=== PATIENT | male | born 1965 | race Caucasian/White ===

== ENCOUNTER 2017-11-26 18:01 | Emergency (ER) | payer BC ==
[~2017-11-26] VITALS: Ht 172.7 cm; Wt 74.8 kg
--- OUTSIDE RECORDS SUMMARY | ~2017-11-26 | XMS | Clinical Summary ---
Demographics + + + | Address | [address] | | | [place] [address] | + + + | Home Phone | | + + + | Preferred Language | Unknown | + + + | Marital Status | | + + + | Voodoo Affiliation | Unknown | + + + | Race | White | + + + | Ethnic Group | Not or | + + + Author + + + | Organization | Unknown | + + + | Address | Unknown | + + + | Phone | Unavailable | + + + Support + + + + + | Name | Relationship | Address | Phone | + + + + + | ITZEL MCKINNEY | [address] | [place] | | + + + + + Care Team Providers + +------+ + | Care Wafer Fabrication Operator Name | Role | Phone | + +------+ + PP | Unavailable | + +------+ + Source Comments VISHNU is fully live on both [facility] and [facility] Allergies Not on File Current Medications Not on file Active Problems Not on file Social History + +-------+ +--------+------+ | Tobacco Use | Types | Packs/Day | Years | Date | | | | | Used | | + +-------+ +--------+------+ | Never Assessed | | | | | + +-------+ +--------+------+ + + + | Sex Assigned at | Date Recorded | | | | + + + | Not on file | | + + + Plan of Treatment + + + + + | Health Maintenance | Due Date | Last Done | Comments | + + + + + | INFLUENZA VACCINE | | | | | (FLU SHOT) | 7 | | | + + + + + Results Not on filefrom Last 3 Months"
--- OUTSIDE RECORDS SUMMARY | ~2017-11-26 | XMS | Clinical Summary ---
Demographics + + + | Address | [address] | | | [place] [address] | + + + | Home Phone | | + + + | Preferred Language | Unknown | + + + | Marital Status | | + + + | Buddhist Affiliation | Unknown | + + + [...] Team Providers + +------+ + | Care Solar Energy Technician Name | Role | Phone | + +------+ + PP | Unavailable | + +------+ + Source Comments VISHNU is fully live on both [facility] and [facility] Allergies Not on File Current Medications Not [...]
[2017-11-26] MEDS ORDERED: VERAPAMIL HCL360 MG PO (18:16)
[2017-11-26] MEDS ORDERED: ZOLPIDEM TARTRA10 MG PO (18:16)
[2017-11-26] MEDS ORDERED: CYCLOBENZAPRINE10 MG PO (18:45)
== END 2017-11-26 19:02 | disposition home or self-care (01) ==
LOC: ED 18:01
DX: M54.42 Lumbago with sciatica, left side (principal); I10 Essential (primary) hypertension; Z88.0 Allergy status to penicillin; Z88.8 Allergy status to other drugs, medicaments and biological substances; Z79.899 Other long term (current) drug therapy; W01.0XXA Fall on same level from slipping, tripping and stumbling without subsequent striking against object, initial encounter; Y93.E1 Activity, personal bathing and showering
CPT/HCPCS: 99283